=== PATIENT | female | born 1995 | race Caucasian/White ===

== ENCOUNTER → 2023-06-23 | Outpatient (CLI) | payer OTHER ==
--- NOTE | 2023-06-23 17:05 | Diagnostic Imaging Report ---
INDICATION: , survey. TECHNIQUE: Multiple real-time grayscale images were obtained over the gravid uterus. COMPARISON: None. FINDINGS: There is a single live intrauterine gestation in breech presentation. The upper spine is seen. A three-vessel cord is seen. The cerebellum and cisterna magna are seen. The cervix measures 5.7 cm and no funneling is seen. The bladder is seen. Two umbilical arteries are seen. The placenta is anterior without evidence of previa. A four-chamber heart is seen. The stomach is seen. The heart rate measures 158 BPM. The nose and lips are seen. The lower spine is seen. The lateral ventricle is seen. The cord insertion is seen. The kidneys are seen and there does appear to be a dilated left renal pelvis measuring 10 mm, with hydronephrosis in the left kidney. The amniotic fluid index measures 13.9 cm. The left and right ventricular outflow tracts are seen. Biometrical measurements are as follows: Biparietal 5.69 cm, age 23 weeks 3 days. Head circumference 21.12 cm, age 23 weeks 2 days. Abdominal circumference 17.66 cm, age 22 weeks 4 days. Femur length 3.92 cm, age 22 weeks 5 days. Sonographic estimate age: 23 weeks 0 days. Sonographic estimated date of delivery: 10/20/2023. Estimated Weight: 525 gm (+/- 77 gm). LMP percentile: 78%. heart rate: 158 beats per minute. number: 1 of 1. IMPRESSION: 1. Single live intrauterine gestation measuring at 23 weeks and 0 days which is within range of the clinical dates. 2. Dilated left renal pelvis with hydronephrosis. Recommend continued follow-up. 3. Breech presentation. Dictated by: Dictated on workstation # [id number]
== END ==
LOC: RAD 15:15
PROVIDERS: ATTEND Nurse Practitioner Women's Health
DX: O23.02 Infections of kidney in pregnancy, second trimester (principal); N13.6 Pyonephrosis; O32.1XX0 Maternal care for breech presentation, not applicable or unspecified; Z3A.23 23 weeks gestation of pregnancy
CPT/HCPCS: 76805